=== PATIENT | female | born 1975 | race Hispanic/Latino ===

== ENCOUNTER 2018-06-11 16:47 | Inpatient (IN) | payer OTHER ==
[~2018-06-11] VITALS: Ht 157.5 cm; Wt 103.4 kg
[2018-06-11 17:48] LABS: ABSOLUTE BASOPHIL COUNT 0 /CUMM (0.0-0.2); ABSOLUTE EOSINOPHIL COUNT 0.2 /CUMM (0.0-0.7); ABSOLUTE GRANULOCYTE CT 5.1 /CUMM (1.4-6.5); ABSOLUTE LYMPH COUNT 2.2 /CUMM (1.2-3.4); ABSOLUTE MONOCYTE COUNT 0.4 /CUMM (0.10-0.60); BASOPHIL % 0.3 % (0.0-2.0); EOSINOPHIL % 1.9 % (0-5); GRANULOCYTE % 64.7 % (42.2-75.2); HEMATOCRIT 33.3 % (37-47); MEAN CORPUSCULAR HGB 30.9 PG (27.0-31.0); MEAN CORPUSCULAR HGB CONC 33.7 G/DL (33.0-37.0); MEAN CORPUSCULAR VOLUME 91.7 FL (81.0-99.0); MEAN PLATELET VOLUME 9.6 FL (7.4-10.4); PLATELET COUNT 192 /CUMM (130-400); RBC DISTRIBUTION WIDTH 14.1 % (11.5-14.5); RED BLOOD CELL CT 3.63 /CUMM (4.20-5.40); WHITE BLOOD CELL COUNT 7.9 /CUMM (4.8-10.8)
--- NOTE | 2018-06-11 18:12 | History & Physical Pre-Op ---
General Information and HPI MD Statement: I have seen and personally examined PRASANTH KEVIN and documented this H&P. The patient is a 43 year old F who presented with a patient stated chief complaint of PAIN[]. History of Present Illness: 43 HF IN NAD C/O CTX DENIES LOW EDEMA Past History Surgical History Pertinent Surgical History: none Review of Systems Review of Systems: NEGATIVE 13 PT Exam & Diagnostic Data Last 24 Hrs of Vital Signs/I&O PER CHART Physical Exam: PE SHORT HF IN NAD ABD SOFT [id number] LIVER NONTENDER PELVIC 1 CM EXT -EDEMA REFLEXES +1 Assessment/Plan Assessment/Plan: ASSESS TERM HSV GDM PLAN ANCEF [facility]S As Ranked By This Provider Problem List: 1.
[2018-06-12 07:10] LABS: ABSOLUTE BASOPHIL COUNT 0 /CUMM (0.0-0.2); ABSOLUTE EOSINOPHIL COUNT 0.1 /CUMM (0.0-0.7); ABSOLUTE GRANULOCYTE CT 9.5 /CUMM (1.4-6.5); ABSOLUTE LYMPH COUNT 2.1 /CUMM (1.2-3.4); ABSOLUTE MONOCYTE COUNT 0.4 /CUMM (0.10-0.60); BASOPHIL % 0.4 % (0.0-2.0); EOSINOPHIL % 0.7 % (0-5); GRANULOCYTE % 78.7 % (42.2-75.2); MEAN CORPUSCULAR HGB 31.5 PG (27.0-31.0); MEAN CORPUSCULAR HGB CONC 33.9 G/DL (33.0-37.0); MEAN CORPUSCULAR VOLUME 92.7 FL (81.0-99.0); MEAN PLATELET VOLUME 9.7 FL (7.4-10.4); PLATELET COUNT 162 /CUMM (130-400); RED BLOOD CELL CT 3.35 /CUMM (4.20-5.40)
[2018-06-12 07:49] LABS: WHITE BLOOD CELL COUNT 12.1 /CUMM (4.8-10.8)
--- NOTE | 2018-06-12 10:30 | PN- Post Delivery/GYN ---
Subjective Subjective: No complaints bonding well with her infant Objective Last 24 Hrs of Vital Signs/I&O Vital Signs Date Time Temp Pulse Resp B/P B/P Pulse O2 O2 Flow FiO2 Mean Ox Delivery Rate 06/11 2324 145/74 Intake & Output 06/12 1600 06/12 0800 06/12 0000 Intake Total Output Total Balance Patient 228 lb Weight Physical Exam: Sure female in no apparent distress HEENT anicteric Abdomen soft nontender Incision clean dry and intact Fundus firm consistent with fibroid uterus Extremities +1 edema negative Homans reflexes +1 Lochia minimal Assessment/Plan Assessment/Plan Assessment is PIH status post section for HSV gestational diabetes Plan discontinue mag sulfate 11 hours after delivery advanced diet advance ambulation observe for possible labetalol 100 twice a day
--- NOTE | 2018-06-12 10:33 | Operative Report ---
Operative/Inv Procedure Report Surgery Date: 06/11/18 Name of Procedure: Primary low flap transverse section Pre-Operative Diagnosis: Term advanced maternal age gestational diabetes history of HSV and Post-Operative Diagnosis: Same Estimated Blood Loss: 500 Surgeon/Pearl Maker: Bart WARNER,Aria Senior and Dr. Jose R Torres Anesthesia: block Operative/Procedure Note Note: Patient was taken the operating room placed supine position after adequate anesthesia skin testing patient was prepped abdomen was prepped and draped so fashion timeout was performed on patient had received Ancef antibiotics on 2 fingerbreadths of symptoms pubis in midline skin was cut with a knife carried down to rectus fascia using a Bovie patient tolerated that well peritoneal cavity was entered bluntly as well as sharply. Low blade the Brendan was placed and lower and incision the visceral peritoneum the uterus was anteriorly dissected and the bladder blade was replaced in the lower uterine segment uterus nicked entered with the back knife dissected bluntly as well as sharply on since removed from the field infant was delivered over the abdominal wall cord around the neck 1 clamped and cut infant was handed to planting material remover waiting delivering to aid in resuscitation placenta was delivered manually had trailing membranes which was wiped clean with 2 wet dry laps as well as ring forceps all of note patient has a large 20 week fibroid uterus eye uterus was left in place it was oversewn running locking suture the first layer it was indicated interrupted [id number] the second layer as well as the third running locking suture layer which was apparently good for hemostatic since patient tolerated that well peritoneum was reapproximated 0 the fascia was reprocessed and to continue sutures #1 after the abdomen had been irrigated copiously with warm saline to clear on the skin was reapproximated roslyn after subcutaneous tenderness tissues Bovie coagulated the counts correct sterile dressing was applied mother and transferred recovery room awake alert counts correct
--- NOTE | 2018-06-13 08:38 | PN- Post Delivery/GYN ---
Subjective Subjective: NO COMPLAINTS Objective Last 24 Hrs of Vital Signs/I&O PER CHART Physical Exam: PE PLEASANT HF IN NAD HEENT PERRLA EOMI ABD SOFT NT INCISION CDI EXTNL REFLEXES -HOMANS Assessment/Plan Assessment/Plan ASSESSS/P C/S [facility] PLAN CONT [facility]
[2018-06-14] MEDS ORDERED: PERCOCET 5-3251 EACH PO (05:22)
[2018-06-14] MEDS ORDERED: LABETALOL HCL200 M1 PO (05:22)
[2018-06-14] MEDS ORDERED: IBUPROFEN800 M1 PO (05:22)
[2018-06-14 09:21] VITALS: BP 152/68
== END 2018-06-14 11:10 | DRG 766 ==
LOC: CBCO 16:47 → GNO 17:50
PROVIDERS: Specialist
PROC: 10D00Z1 Extraction of Products of Conception, Low, Open Approach (ICD-10-PCS; principal; 2018-06-11)
DX: O24.424 Gestational diabetes mellitus in childbirth, insulin controlled (principal); O13.4 Gestational [pregnancy-induced] hypertension without significant proteinuria, complicating childbirth; B00.9 Herpesviral infection, unspecified; Z3A.38 38 weeks gestation of pregnancy; Z37.0 Single live birth; Z79.4 Long term (current) use of insulin
CPT/HCPCS: GNOP; GNOS; 81001; 87086; J1650; J1885; J3475; J7120